=== PATIENT | female | born 1965 | race Caucasian/White ===

== ENCOUNTER 2018-06-27 16:14 | Emergency (ER) | payer SELFPAY ==
[~2018-06-27] VITALS: Ht 165.1 cm; Wt 61.4 kg
[2018-06-27 16:23] VITALS: BP 157/78
[2018-06-27] MEDS ORDERED: ACETAMINOPHEN 500 MG TABLET PO ONE (17:15)
== END 2018-06-27 19:01 | disposition home or self-care (01) ==
LOC: EMS 16:14
DX: S13.4XXA Sprain of ligaments of cervical spine, initial encounter (principal); V49.40XA Driver injured in collision with unspecified motor vehicles in traffic accident, initial encounter; Y93.89 Activity, other specified; Y92.89 Other specified places as the place of occurrence of the external cause; Y99.8 Other external cause status
CPT/HCPCS: 72125